=== PATIENT | male | born 1985 | race Caucasian/White ===

== ENCOUNTER 2020-09-19 00:09 | Emergency (ER) | payer OTHER ==
[~2020-09-19] VITALS: Ht 185.4 cm; Wt 99.8 kg
[2020-09-19] MEDS ORDERED: SERTRALINE HCL100 MG PO (00:25)
[2020-09-19] MEDS ORDERED: SUPER THERAVIT1 EACH PO (00:25)
[2020-09-19] MEDS ORDERED: OMEPRAZOLE 20 M20 M1 PO (00:25)
[2020-09-19] MEDS ORDERED: BACTRIM DS TAB1 EACH PO (01:31)
[2020-09-19] MEDS ORDERED: KEFLEX500 M1 PO (01:31)
[2020-09-19 01:51] VITALS: BP 129/69
== END 2020-09-19 01:51 | disposition home or self-care (01) ==
LOC: ER 00:09
DX: L03.012 Cellulitis of left finger (principal); L02.512 Cutaneous abscess of left hand; F17.210 Nicotine dependence, cigarettes, uncomplicated; Z79.899 Other long term (current) drug therapy